=== PATIENT | male | born 1990 | race Caucasian/White ===

== ENCOUNTER 2018-05-19 03:23 | Emergency (ER) | payer SELFPAY ==
[2018-05-19 03:27] VITALS: RESP 18; TEMP 97.7
--- NOTE | 2018-05-19 04:49 | ED PDOC ---
HPI: Psych/Substance Abuse Time Seen by Provider: 05/19/18 03:30 Chief Complaint (Nursing): Alcohol Ingestion ED Caveat: Intoxicated History Per: Patient History/Exam Limitations: intoxication Onset/Duration Of Symptoms: Hrs Additional Complaint(s): Patient admits to drinking alcohol and then tried to climb into the wrong Uber, was brought to ER by EMS after police were called to the scene. Denies drugs or injuries. Past Medical History Reviewed: Historical Data, Nursing Documentation, Vital Signs Vital Signs: Last Vital Signs Temp 97.7 F 05/19/18 03:26 Pulse 107 H 05/19/18 04:43 Resp 18 05/19/18 03:26 BP 147/93 H 05/19/18 03:26 Pulse Ox 99 05/19/18 03:26 - Medical History PMH: No Chronic Diseases - Family History Family History: States: Unknown Family Hx - Allergies Allergies/Adverse Reactions: Allergies Allergy/AdvReac Type Severity Reaction Status Date / Time No Known Allergies Allergy Verified 05/19/18 03:26 Review of Systems ROS Statement: Except As Marked, All Systems Reviewed And Found Negative Physical Exam - Reviewed Nursing Documentation Reviewed: Yes Vital Signs Reviewed: Yes - Physical Exam Appears: Positive for: Well (Mildly intoxicated), Non-toxic, No Acute Distress Head Exam: Positive for: ATRAUMATIC, NORMAL INSPECTION, NORMOCEPHALIC Skin: Positive for: Normal Color, Warm, DRY Eye Exam: Positive for: EOMI, Normal appearance, PERRL ENT: Positive for: Normal ENT Inspection Neck: Positive for: Normal, Painless ROM Cardiovascular/Chest: Positive for: Regular Rate, Rhythm Respiratory: Positive for: CNT, Normal Breath Sounds Gastrointestinal/Abdominal: Positive for: Normal Exam, Soft Back: Positive for: Normal Inspection Extremity: Positive for: Normal ROM Neurologic/Psych: Positive for: Alert, logistics administrator II-XII, Oriented, Gait (STeady). Negative for: Motor/Sensory Deficits - ECG O2 Sat by Pulse Oximetry: 99 Medical Decision Making Medical Decision Making: PAtient brought to the ER for alcohol intoxication Patient well appearing, steady gait, improving vitals PAtient ambulated to nurses's station and ate a slice of pizza Stable for discharge Disposition - Clinical Impression Clinical Impression: Alcohol abuse - Disposition Referrals: Alcoholics Anonymous [Outside] Disposition: Routine/Home Disposition Time: 04:48 Condition: GOOD Instructions: Alcohol Abuse and Alcoholism (DC) Forms: [facility] ([employer])
[2018-05-19 05:03] VITALS: BP 156/94; PULSE 99; O2SAT 97
== END 2018-05-19 05:01 | disposition home or self-care (01) ==
LOC: H.ER 03:23
DX: F10.10 Alcohol abuse, uncomplicated (principal)